=== PATIENT | male | born 1955 ===

== ENCOUNTER 2020-03-26 14:59 | Emergency (ER) | payer OTHER, MEDICARE ==
[~2020-03-26] VITALS: Ht 185.4 cm; Wt 101.2 kg
== END 2020-03-26 16:04 | disposition home or self-care (01) ==
LOC: ER 14:59
DX: F41.9 Anxiety disorder, unspecified (principal); I95.9 Hypotension, unspecified; I48.91 Unspecified atrial fibrillation
CPT/HCPCS: 93005; 93010; 99285-25

== ENCOUNTER 2020-11-09 23:46 | Emergency (ER) | payer OTHER, MEDICARE ==
[~2020-11-09] VITALS: Ht 185.4 cm; Wt 99.8 kg
[2020-11-10 00:44] LABS: BASOPHILS ABSOLUTE AUTO 0.02 K/mm3 (0.00-0.23); BASOPHILS PERCENT AUTO 0 % (0-2); EOSINOPHILS ABSOLUTE AUTO 0.12 K/mm3 (0.00-0.68); EOSINOPHILS PERCENT AUTO 2 % (0-6); Hemoglobin 12.4 g/dL (13.5-17.5); IMMATURE GRAN ABSOLUTE AUTO 0.02 K/mm3 (0.00-0.10); IMMATURE GRAN PERCENT AUTO 0 % (0-1); LYMPHOCYTES ABSOLUTE AUTO 2.23 K/mm3 (0.84-5.20); LYMPHOCYTES PERCENT AUTO 42 % (21-46); MONOCYTES ABSOLUTE AUTO 0.39 K/mm3 (0.16-1.47); MONOCYTES PERCENT AUTO 7 % (4-13); Mean Corpuscular HGB 30.2 pg (26.0-34.0); Mean Corpuscular HGB Conc 35.4 g/dL (31.5-36.5); Mean Corpuscular Volume 85 fL (80-100); Mean Platelet Volume 8.9 fL (9.1-12.4); NEUTROPHILS ABSOLUTE AUTO 2.56 K/mm3 (1.96-9.15); NEUTROPHILS PERCENT AUTO 48 % (41-73); Platelet Count 203 K/mm3 (150-400); RDW Coefficient Variation 12.2 % (11.7-14.2); RDW Standard Deviation 38.1 fL (35.1-46.3); White Blood Cell Count 5.34 K/mm3 (4.00-11.30)
[2020-11-10 01:01] LABS: Alanine Aminotransfer (ALT/SGP 35 U/L (12-78); Albumin, Blood 3.4 g/dL (3.4-5.0); Albumin/Globulin Ratio 1.1 (0.8-1.8); Alk Phos 64 U/L (50-136); Anion Gap 10 mmol/L (6-16); Aspartate Aminotrans (AST/SGOT 12 U/L (12-37); Bilirubin, Total 0.2 mg/dL (0.1-1.0); Blood Urea Nitrogen 17 mg/dL (8-24); Bun/Creatinine Ratio 20.2 (12.0-20.0); CO2, Blood 26 mmol/L (21-32); Calcium, Blood 7.8 mg/dL (8.5-10.1); Chloride, Blood 101 mmol/L (98-108); Creatinine, Blood 0.84 mg/dL (0.60-1.20); Ethanol (Alcohol), Blood, Med 173 mg/dL; Glomerular Filtration Rate >60 (60-); Glucose, Blood 189 mg/dL (70-99); Potassium, Blood 3.9 mmol/L (3.5-5.5); Salicylate <1.7 mg/dL (2.8-20.0); Sodium, Blood 137 mmol/L (136-145); Total Protein, Blood 6.4 g/dL (6.4-8.2)
[2020-11-10 01:08] LABS: Acetaminophen, Random <2.0 ug/mL (10.0-30.0)
[2020-11-10 05:33] LABS: U Amphetamine Screen Not Detected; U Barbituate Screen Not Detected; U Benzodiazapine Screen Not Detected; U Buprenorphine Screen Not Detected; U Cannabinoids Screen Not Detected; U Cocaine Screen Not Detected; U Methadone Screen Not Detected; U Methamphetamine Screen Not Detected; U Opiates Screen Not Detected; U Oxycodone Screen DETECTED; U Phencyclidine Screen Not Detected; U Propoxyphene Screen Not Detected
[2020-11-10] MEDS ORDERED: NARCAN4 M1 (05:33)
== END 2020-11-10 06:20 | disposition home or self-care (01) ==
LOC: ER 23:46
PROVIDERS: Emergency Medicine
DX: T40.2X1A Poisoning by other opioids, accidental (unintentional), initial encounter (principal); T51.91XA Toxic effect of unspecified alcohol, accidental (unintentional), initial encounter; F10.129 Alcohol abuse with intoxication, unspecified; R47.81 Slurred speech; I48.91 Unspecified atrial fibrillation; E78.5 Hyperlipidemia, unspecified; I10 Essential (primary) hypertension
CPT/HCPCS: 80053; 85025; 93005; 93010; 96374; 99284-25; G0480; J2310; J7030

== ENCOUNTER 2021-08-21 23:35 | Emergency (ER) | payer OTHER ==
[~2021-08-21] VITALS: Ht 172.7 cm; Wt 117.9 kg
[~2021-08-21 23:35] MED LIST: NARCAN4 M1
[2021-08-21 23:59] LABS: BASOPHILS ABSOLUTE AUTO 0.03 K/mm3 (0.00-0.23); BASOPHILS PERCENT AUTO 0 % (0-2); EOSINOPHILS ABSOLUTE AUTO 0.13 K/mm3 (0.00-0.68); EOSINOPHILS PERCENT AUTO 2 % (0-6); Hematocrit 38.7 % (37.0-53.0); Hemoglobin 13.7 g/dL (13.5-17.5); IMMATURE GRAN ABSOLUTE AUTO 0.03 K/mm3 (0.00-0.10); IMMATURE GRAN PERCENT AUTO 0 % (0-1); LYMPHOCYTES PERCENT AUTO 30 % (21-46); MONOCYTES ABSOLUTE AUTO 0.49 K/mm3 (0.16-1.47); MONOCYTES PERCENT AUTO 6 % (4-13); Mean Corpuscular HGB 30.6 pg (26.0-34.0); Mean Corpuscular HGB Conc 35.4 g/dL (31.5-36.5); Mean Corpuscular Volume 86 fL (80-100); Mean Platelet Volume 9.5 fL (9.1-12.4); NEUTROPHILS ABSOLUTE AUTO 4.86 K/mm3 (1.96-9.15); NEUTROPHILS PERCENT AUTO 61 % (41-73); Platelet Count 178 K/mm3 (150-400); RDW Standard Deviation 37.8 fL (35.1-46.3); Red Blood Cell Count 4.48 M/mm3 (4.30-5.90); White Blood Cell Count 7.94 K/mm3 (4.00-11.30)
[2021-08-22 00:16] LABS: Alanine Aminotransfer (ALT/SGP 45 U/L (12-78); Albumin, Blood 3.7 g/dL (3.4-5.0); Albumin/Globulin Ratio 1.2 (0.8-1.8); Alk Phos 53 U/L (50-136); Anion Gap 10 mmol/L (6-16); Aspartate Aminotrans (AST/SGOT 16 U/L (12-37); Bilirubin, Total 0.3 mg/dL (0.1-1.0); Blood Urea Nitrogen 20 mg/dL (8-24); Bun/Creatinine Ratio 24.8 (12.0-20.0); CO2, Blood 25 mmol/L (21-32); Calcium, Blood 8.6 mg/dL (8.5-10.1); Chloride, Blood 103 mmol/L (98-108); Creatinine, Blood 0.81 mg/dL (0.60-1.20); Ethanol (Alcohol), Blood, Med 220 mg/dL; Globulin, Blood 3.1 g/dL (2.2-4.0); Glomerular Filtration Rate >60 (60-); Glucose, Blood 360 mg/dL (70-99); Magnesium, Blood 1.8 mg/dL (1.6-2.4); Sodium, Blood 138 mmol/L (136-145); Total Protein, Blood 6.8 g/dL (6.4-8.2)
== END 2021-08-22 01:06 | disposition home or self-care (01) ==
LOC: ER 23:35
PROVIDERS: Emergency Medicine
DX: F10.129 Alcohol abuse with intoxication, unspecified (principal); E11.65 Type 2 diabetes mellitus with hyperglycemia; E78.5 Hyperlipidemia, unspecified; I10 Essential (primary) hypertension; Z79.899 Other long term (current) drug therapy
CPT/HCPCS: 36415; 80053; 83735; 85025; 99284; G0480; J7030

== ENCOUNTER 2022-05-09 13:33 | Observation (INO) | payer OTHER ==
[~2022-05-09] VITALS: Ht 185.4 cm; Wt 102.4 kg
[2022-05-09 14:13] LABS: BASOPHILS ABSOLUTE AUTO 0.03 K/mm3 (0.00-0.23); BASOPHILS PERCENT AUTO 0 % (0-2); EOSINOPHILS ABSOLUTE AUTO 0.25 K/mm3 (0.00-0.68); EOSINOPHILS PERCENT AUTO 3 % (0-6); Hematocrit 38.6 % (37.0-53.0); Hemoglobin 13.8 g/dL (13.5-17.5); IMMATURE GRAN ABSOLUTE AUTO 0.02 K/mm3 (0.00-0.10); IMMATURE GRAN PERCENT AUTO 0 % (0-1); LYMPHOCYTES ABSOLUTE AUTO 1.98 K/mm3 (0.84-5.20); LYMPHOCYTES PERCENT AUTO 25 % (21-46); MONOCYTES ABSOLUTE AUTO 0.57 K/mm3 (0.16-1.47); MONOCYTES PERCENT AUTO 7 % (4-13); Mean Corpuscular HGB 30.9 pg (26.0-34.0); Mean Corpuscular HGB Conc 35.8 g/dL (31.5-36.5); Mean Corpuscular Volume 86 fL (80-100); Mean Platelet Volume 9.5 fL (9.1-12.4); NEUTROPHILS ABSOLUTE AUTO 5.11 K/mm3 (1.96-9.15); NEUTROPHILS PERCENT AUTO 64 % (41-73); Platelet Count 231 K/mm3 (150-400); RDW Coefficient Variation 12.2 % (11.7-14.2); RDW Standard Deviation 38.5 fL (35.1-46.3); Red Blood Cell Count 4.47 M/mm3 (4.30-5.90); White Blood Cell Count 7.96 K/mm3 (4.00-11.30)
[2022-05-09 14:17] LABS: International Normalized Ratio 1.04; Prothrombin Time Results 10.9 Sec (9.7-11.5)
[2022-05-09 14:29] LABS: Albumin, Blood 3.7 g/dL (3.4-5.0); Albumin/Globulin Ratio 1.2 (0.8-1.8); Bilirubin, Total 0.5 mg/dL (0.1-1.0); Bun/Creatinine Ratio 32.8 (12.0-20.0); Calcium, Blood 9.1 mg/dL (8.5-10.1); Creatinine, Blood 0.79 mg/dL (0.60-1.20); Globulin, Blood 3.1 g/dL (2.2-4.0); Potassium, Blood 4.1 mmol/L (3.5-5.5); Total Protein, Blood 6.8 g/dL (6.4-8.2)
--- NOTE | 2022-05-10 03:47 | NUR ---
SHIFT SUMMARY NO OVERNIGHT EVENTS. DENIES CHEST PAIN. TROPS HAVE ALL BEEN NEGATIVE. PT NPO FOR STRESS TEST TODAY, PT AWARE. PT AMBULATING TO BATHROOM INDEPENDENTLY WITH CANE. ABLE TO MAKE NEEDS KNOWN, CALL LIGHT IN REACH.
[2022-05-10 06:43] LABS: CHOL/HDL RATIO 3.9; Cholesterol 130 mg/dL (50-200); HDL Cholesterol 33 mg/dL (>39); LDL/HDL RATIO 0.9; Low Density Lipoprotein Chol 28 mg/dL (0-110); Triglycerides 343 mg/dL (30-160); Very Low Density Lipoprot Chol 68 mg/dL (6-32)
--- NOTE | 2022-05-10 18:49 | NUR ---
SHIFT SUMMARY NO ACUTE CHANGES. INDEPENDENT IN ROOM. A&OX4. AT BEDSIDE DURING THE DAY. PT HAD FIRST PART OF NEUCLAR STRESS TEST TODAY. PT HAD ELEVATED B/P THIS AFTERNOON OF 162/105. HYDROLOZINE GIVEN AND B/P WAS 153/98 WHEN RECHECKED. BED IN LOWEST POSITION AND CALL LIGHT IN REACH.
--- NOTE | 2022-05-11 03:48 | NUR ---
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 PT REPORTING MILD HEADACHE AT THIS TIME. AT BEDSIDE. PT CALLED RN INTO ROOM FOR HEADACHE, ADMINISTERED TYLENOL. 30 MINUTES LATER PT CALLS AGAIN SAYING HEADACHE IS 10/10, CHECKED BP AND SBP 186. ADMINISTERED PRN HYDRALYZINE. DECREASED SBP DOWN TO 160. 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 RECIEVED NEW ORDER FOR X1 DOSE TORADOL. PT NOW STATING HEADACHE GONE. 0245 CALLS RN INTO ROOM WITH HEADACHE. ADMINISTERED TORADOL, SBP 163. TOO EARLIER FOR ADDITIONAL HYDRALYZINE DOSE. WILL RECHECK BP AND ADMINISTER IF NEEDED. PT DENIES ANY CHEST PAIN, SOB, OR ANYU OTHER S/S OF DISTRESS ONLY HEADACHE. PT NPO AT MIDNIGHT FOR SECOND PART OF STRESS TEST. PT AND AWARE. AMBULATES INDEPENDENTLY. ABLE TO MAKE NEEDS KNOWN, CALL LIGHT IN REACH.
--- NOTE | 2022-05-11 06:42 | NUR ---
0500 PT BP STILL HIGH AND STILL HAVING HEADACHE. ADMINISTERED PRN HYDRALYZINE AND TYLENOL. 0630 ENETERED ROOM TO RECHECK BP, 154/88. PT AND UPSET THAT PT CONTINUES TO HAVE HEADACHE AND THAT HOME MEDS WERE NOT RESTARTED. THIS RN WAS NOT AWARE HAD BROUGHT IN MED REC LIST EARLIER IN THE DAY, EXPLAINED TO PT AND . PT STATING HE IS WANTING TO LEAVE AMA, EDUCATED ON IMPORTANCE OF STAYING FOR 2ND PART OF STRESS TEST. PT AGREEABLE FOR NOW TO STAY UNTIL DAY SHIFT COMES IN AND TO TALK TO THE PRIMARY DOCTOR TAKING CARE OF HIM.
[2022-05-11] MEDS ORDERED: GABA300 PO (17:22)
[2022-05-11] MEDS ORDERED: Acetaminophen650 M1 PO (17:22)
[2022-05-11] MEDS ORDERED: AMIT50 PO (17:22)
[2022-05-11] MEDS ORDERED: BASAGLAR K100 UNIT/8 SC (17:24)
[2022-05-11] MEDS ORDERED: METO25 PO (17:26)
[2022-05-11] MEDS ORDERED: HUMULIN R100 UNIT/2 SC (17:26)
--- NOTE | 2022-05-11 18:05 | NUR ---
PT DISCHARGED HOME. INSTRUCTIONS AND EDUCATION MATERIAL EXPLAINED TO PT. PT VERBALIZED NO NEW QUESTIONS OR CONCERNS. IV AND TELE DC'd. ALL BELONGINGS SENT HOME WITH PT. NEW MEDICATIONS FAXED TO [facility]. PT WAS WALKED OUT TO WAITING VEHICLE.
== END 2022-05-11 17:34 | disposition home or self-care (01) ==
LOC: ER 13:33 → MEDS 17:25
PROVIDERS: Emergency Medicine; ADMIT Hospitalist
DX: I24.9 Acute ischemic heart disease, unspecified (principal); R07.9 Chest pain, unspecified; M54.2 Cervicalgia; M54.9 Dorsalgia, unspecified; I10 Essential (primary) hypertension; E11.9 Type 2 diabetes mellitus without complications; F41.9 Anxiety disorder, unspecified; I48.91 Unspecified atrial fibrillation
CPT/HCPCS: 36415; 70450; 71046; 78452; 80053; 80061; 82947; 83036; 83690; 83880; 84484; 85025; 85610; 93005; 93010; 93017; 96374; 96375; 96376; 99285-25; A9270; A9500; G0378; J0360; J0706; J1170; J1815; J1885; J2785